=== PATIENT | male | born 1975 | race Caucasian/White ===

== ENCOUNTER 2019-01-16 11:10 | Emergency (ER) | payer MEDICAID ==
[~2019-01-16] VITALS: Ht 198.1 cm; Wt 108.9 kg
--- NOTE | 2019-01-16 11:48 | NUR ---
PT BIBS C/O RIGHT BIG TOE PAIN 4/10 DUE TO WALKINGH INTOA TABLE X3 DAYS AGO , PAIN LEVLE 4/10 + BRUISING, SWELLING. FROM. - [facility]
[2019-01-16] MEDS ORDERED: ACETAMINOPHEN ES 500 MG TABLET ONE (12:29)
[2019-01-16] MEDS ORDERED: ACETAMINOPHEN 325 MG TABLET PO ONE (12:30)
--- NOTE | 2019-01-16 12:54 | NUR ---
Patient discharged to home in stable condition. Written and verbal after care instructions given. Patient verbalizes understanding of instruction.
[2019-01-16 12:56] VITALS: BP 118/79
== END 2019-01-16 12:57 | disposition home or self-care (01) ==
LOC: ER 11:19
DX: S90.111A Contusion of right great toe without damage to nail, initial encounter (principal); S80.812A Abrasion, left lower leg, initial encounter; G43.909 Migraine, unspecified, not intractable, without status migrainosus; Z98.890 Other specified postprocedural states; W01.198A Fall on same level from slipping, tripping and stumbling with subsequent striking against other object, initial encounter; Y93.89 Activity, other specified; Y92.89 Other specified places as the place of occurrence of the external cause; Y99.0 Civilian activity done for income or pay
CPT/HCPCS: 73660-TC